=== PATIENT | male | born 1960 | race Asian ===

== ENCOUNTER 2021-04-20 11:26 | Inpatient (IN) | payer OTHER, SELFPAY ==
[~2021-04-20] VITALS: Ht 167.6 cm; Wt 75.8 kg
[2021-04-20] MEDS ORDERED: LORazepam 2 MG/ML VIAL ONE (11:30)
[2021-04-20] MEDS ORDERED: HALOPERIDOL IM 5 MG/ML VIAL ONE (11:30)
[2021-04-20 11:36] VITALS: BP 109/62
[2021-04-20] MEDS ORDERED: PROPOFOL 1000 MG/100 ML PREMIX 100 ML IV ONE (11:55)
[2021-04-20] MEDS ORDERED: ETOMIDATE 20 MG/10 ML VIAL IVP ONE (11:55)
[2021-04-20] MEDS ORDERED: KETAMINE 10 MG/ML UD SYR **ER IVP ONE (11:55)
[2021-04-20] MEDS ORDERED: ROCURONIUM 50 MG/5 ML VIAL IV ONE (11:55)
[2021-04-20] MEDS ORDERED: fentaNYL citrate 0.05 MG/ML VIAL ONE (12:10)
[2021-04-20] MEDS: fentaNYL citrate 1 MG in NACL 0.9% 80 ML IV SCH ×2 (12:13→22:25)
[2021-04-20 12:33] LABS: EOSINOPHILS % (AUTO) 0.1 % (0.0-4.0); HEMATOCRIT 52.2 % (36-52); HEMOGLOBIN 16.4 g/dL (12.0-18.0); LYMPHOCYTES # (AUTO) 0.5 K/uL (2.0-11.5); LYMPHOCYTES % (AUTO) 3.7 % (20.5-51.1); MEAN CORPUSCULAR HEMOGLOBIN 26 pg (27-31); MEAN CORPUSCULAR HGB CONC 31 g/dL (33-37); MEAN CORPUSCULAR VOLUME 81.7 fL (80-94); MONOCYTES # (AUTO) 0.9 K/uL (0.8-1.0); MONOCYTES % (AUTO) 6.2 % (1.7-9.3); NEUTROPHILS # (AUTO) 12.8 K/uL (1.8-7.7); PLATELET COUNT (AUTO) 371 K/uL (140-450); RED BLOOD CELL COUNT(AUTO) 6.38 MIL/uL (4.20-6.10); WHITE BLOOD COUNT (AUTO) 14.2 K/uL (4.8-10.8)
[2021-04-20 12:38] LABS: PROTHROMBIN TIME 11.5 secs (10.8-13.4)
[2021-04-20] MEDS ORDERED: NACL 0.9% 3,000 ML IV ONE (12:45)
[2021-04-20 12:49] LABS: ALBUMIN 4.2 g/dL (3.4-5.0); ANION GAP 28.2 (8-16); CARBON DIOXIDE 19.7 mmol/L (21-32); CHLORIDE 97 mmol/L (98-107); GFR ARICAN-AMERICAN 14 mL/min (>90); GLUCOSE 234 mg/dL (74-106); POTASSIUM 5.9 mmol/L (3.5-5.1); SODIUM SERUM 139 mmol/L (136-145); TOTAL BILIRUBIN 0.5 mg/dL (0.0-1.0)
[2021-04-20 12:52] LABS: APPEARANCE,URINE SL CLOUDY (CLEAR); BILIRUBIN,URINE 1+ (NEGATIVE); BLOOD, URINE 3+ (NEGATIVE); COLOR,URINE YELLOW (YELLOW); LEUKOCYTE ESTERASE ,URINE NEGATIVE (NEGATIVE); NITRITE, URINE NEGATIVE (NEGATIVE); PH,URINE 5.5 (5.0-9.0); UGLUCOSE NEGATIVE (NEGATIVE)
[2021-04-20 13:05] LABS: BARBITURATE, URINE NEGATIVE ng/ml (NEG <=200); BENZODIAZEPINE, URINE NEGATIVE ng/mL (NEG <=200); CANNABINOID, URINE NEGATIVE ng/mL (NEG <=50); COCAINE, URINE POSITIVE ng/mL (NEG <=300); OPIATE, URINE POSITIVE ng/mL (NEG <=2000); PHENCYCLIDINE SCREEN,URINE NEGATIVE ng/mL (NEG <=25)
[2021-04-20 13:14] LABS: RBC,URINE 0-5 /HPF (0-5)
[2021-04-20 13:15] LABS: URINE AMORPHOUS URATE 1+ /HPF (None Seen)
[2021-04-20] MEDS ORDERED: PIPERACILLIN/TAZOBACTAM 3.375 GM in DEXTROSE 5% 50 ML IV ONE (13:15)
[2021-04-20] MEDS ORDERED: NOREPINEPHRINE 4 MG in DEXTROSE 5% 250 ML IV ONE (13:20)
[2021-04-20] MEDS ORDERED: PIPERACILLIN/TAZOBACTAM 3.375 GM VIAL IV ONE (13:30)
[2021-04-20 13:32] LABS: ASPARTATE AMINOTRANSFERASE 2105 U/L (15-37)
[2021-04-20 13:52] LABS: CREATININE 5.4 mg/dL (0.6-1.3); UREA NITROGEN, BLOOD 70 mg/dL (7-18)
[2021-04-20 13:53] LABS: ACETAMINOPHEN < 0.5 ug/ml (10-30); SALICYLATE < 2.8 mg/dL (2.8-20.0)
[2021-04-20 14:13] LABS: CKMB RELATIVE INDEX 1.2 (0.0-2.5); CREATINE KINASE MB 263.8 ng/mL (0-3.6)
[2021-04-20] MEDS ORDERED: CALCIUM CHLORIDE 10% 100 MG/ML SYR IVP ONE (14:25)
[2021-04-20] MEDS ORDERED: fentaNYL citrate 0.05 MG/ML VIAL IVP ONE (14:55)
[2021-04-20] MEDS ORDERED: HALOPERIDOL IM 5 MG/ML VIAL IM ONE (14:55)
[2021-04-20] MEDS ORDERED: LORazepam 2 MG/ML VIAL IVP ONE (14:55)
[2021-04-20] MEDS: SODIUM BICARBONATE 8.4% 50 MEQ in NACL 0.45% 1,000 ML IV SCH (15:41)
[2021-04-20] MEDS ORDERED: ONDANSETRON 4 MG/2 ML VIAL IM/IVP PRN (18:40)
[2021-04-20] MEDS ORDERED: DOCUSATE SODIUM 100 MG GELCAP PO PRN ×2 (18:40→19:00)
[2021-04-20] MEDS ORDERED: ZOLPIDEM 5 MG TAB PO PRN ×2 (18:40→19:00)
[2021-04-20] MEDS ORDERED: HYDROcodone/APAP 5/325 MG 1 TAB TAB PO PRN (18:40)
[2021-04-20] MEDS ORDERED: LORazepam 2 MG/ML VIAL IM/IVP PRN ×2 (18:40→19:00)
[2021-04-20] MEDS ORDERED: POTASSIUM CHLORIDE 10 MEQ TABER PO PRN ×2 (18:40→19:00)
[2021-04-20] MEDS ORDERED: MAG SULF 2000 MG/WATER PREMIX 50 ML IV PRN ×2 (18:40→19:00)
[2021-04-20] MEDS ORDERED: NACL 0.9% 1,000 ML IV SCH ×3 (18:40→19:35)
[2021-04-20] MEDS ORDERED: MORPHINE SULFATE 2 MG/ML SYR IVP PRN (18:40)
[2021-04-20] MEDS ORDERED: ACETAMINOPHEN 325 MG TAB PO PRN ×2 (18:40→19:00)
[2021-04-20 19:05] LABS: PROTHROMBIN TIME 11.2 secs (10.8-13.4)
[2021-04-20 19:14] LABS: CHOL/HDL RATIO 2.5 (1-4.5); MAGNESIUM 3.8 mg/dL (1.8-2.4); THYROID STIMULATING HORMONE 0.59 uIU/mL (0.34-3.74)
[2021-04-20 20:07] VITALS: BP 106/70
[2021-04-20] MEDS ORDERED: NOREPINEPHRINE 16 MG in DEXTROSE 5% 250 ML IV PRN (23:15)
[2021-04-20] MEDS ORDERED: NOREPINEPHRINE 4 MG/4 ML VIAL IV ONE (23:57)
[2021-04-21] VITALS (28 sets, daily range): BP systolic 100–135; BP diastolic 61–81
[2021-04-21] MEDS ORDERED: SODIUM BICARBONATE 8.4% PFS 50 MEQ/50 ML SYR IVP ONE (01:17)
[2021-04-21] MEDS: LACTULOSE 20 GM/30 ML UDC NG SCH ×2 (01:30→11:10)
[2021-04-21] MEDS: SODIUM BICARBONATE 8.4% 50 MEQ in NACL 0.45% 1,000 ML IV SCH (01:52)
[2021-04-21 06:12] LABS: BASOPHILS % (AUTO) 0.1 % (0.0-2.0); EOSINOPHILS % (AUTO) 0.1 % (0.0-4.0); HEMATOCRIT 45.2 % (36-52); HEMOGLOBIN 14.5 g/dL (12.0-18.0); LYMPHOCYTES # (AUTO) 0.8 K/uL (2.0-11.5); MEAN CORPUSCULAR HEMOGLOBIN 26 pg (27-31); MEAN CORPUSCULAR HGB CONC 32 g/dL (33-37); MEAN CORPUSCULAR VOLUME 79.8 fL (80-94); MONOCYTES # (AUTO) 0.7 K/uL (0.8-1.0); MONOCYTES % (AUTO) 5.9 % (1.7-9.3); NEUTROPHILS # (AUTO) 9.6 K/uL (1.8-7.7); PLATELET COUNT (AUTO) 188 K/uL (140-450); RED BLOOD CELL COUNT(AUTO) 5.66 MIL/uL (4.20-6.10); RED CELL DISTRIBUTION WIDTH 15.1 % (11.6-13.7)
[2021-04-21 06:23] LABS: MAGNESIUM 2.5 mg/dL (1.8-2.4); PHOSPHORUS 7.3 mg/dL (2.5-4.9)
[2021-04-21 06:29] LABS: ANION GAP 21.6 (8-16); CARBON DIOXIDE 17.9 mmol/L (21-32); POTASSIUM 5.5 mmol/L (3.5-5.1)
[2021-04-21 06:46] LABS: CREATININE 5.6 mg/dL (0.6-1.3)
[2021-04-21 07:11] LABS: LYMPHOCYTES % (AUTO) 6.8 % (20.5-51.1); NEUTROPHILS % (AUTO) 87.1 % (42.2-75.2)
[2021-04-21 10:00] LABS: CREATINE KINASE MB 372.5 ng/mL (0-3.6)
[2021-04-21] MEDS: NACL 0.9% 1,000 ML IV SCH ×2 (11:02→17:35)
[2021-04-21] MEDS: CALCIUM ACETATE 667 MG TAB NG SCH ×2 (11:07→17:37)
[2021-04-21] MEDS ORDERED: SODIUM ZIRCONIUM CYCLOSILICATE 10 GM POWD.PACK PO SCH (11:08)
[2021-04-22] VITALS (30 sets, daily range): BP systolic 118–171; BP diastolic 60–118
[2021-04-22] MEDS: NACL 0.9% 1,000 ML IV SCH ×3 (01:35→22:57)
[2021-04-22 06:18] LABS: BASOPHILS % (AUTO) 0.1 % (0.0-2.0); EOSINOPHILS % (AUTO) 0.2 % (0.0-4.0); HEMATOCRIT 40.3 % (36-52); LYMPHOCYTES # (AUTO) 0.4 K/uL (2.0-11.5); LYMPHOCYTES % (AUTO) 3.8 % (20.5-51.1); MEAN CORPUSCULAR HEMOGLOBIN 26 pg (27-31); MEAN CORPUSCULAR HGB CONC 32 g/dL (33-37); MEAN CORPUSCULAR VOLUME 79.1 fL (80-94); MONOCYTES # (AUTO) 0.6 K/uL (0.8-1.0); MONOCYTES % (AUTO) 6.2 % (1.7-9.3); NEUTROPHILS # (AUTO) 9.2 K/uL (1.8-7.7); NEUTROPHILS % (AUTO) 89.7 % (42.2-75.2); PLATELET COUNT (AUTO) 180 K/uL (140-450); RED CELL DISTRIBUTION WIDTH 15.3 % (11.6-13.7); WHITE BLOOD COUNT (AUTO) 10.2 K/uL (4.8-10.8)
[2021-04-22 06:33] LABS: ANION GAP 20.8 (8-16); CARBON DIOXIDE 16.9 mmol/L (21-32); POTASSIUM 4.7 mmol/L (3.5-5.1)
[2021-04-22 06:39] LABS: CREATININE 7.9 mg/dL (0.6-1.3)
[2021-04-22 06:44] LABS: MAGNESIUM 2.7 mg/dL (1.8-2.4); PHOSPHORUS 8.4 mg/dL (2.5-4.9)
[2021-04-22 09:06] LABS: T4 (THYROXINE) 7.6 ug/dL (4.5-12.0)
[2021-04-22] MEDS ORDERED: DEXTROSE 50% 50 ML SYR IVP PRN (09:20)
[2021-04-22] MEDS: CALCIUM ACETATE 667 MG TAB NG SCH ×2 (09:46→17:16)
[2021-04-22] MEDS ORDERED: LEVOFLOXACIN 750 MG/D5W PREMIX 150 ML IV SCH (10:00)
[2021-04-22] MEDS: BLOOD GLUCOSE MONITORING 1 DEV DEV FS SCH ×3 (11:30→21:30)
[2021-04-22] MEDS: PANTOPRAZOLE 40 MG INJ VIAL IVP SCH (13:00)
[2021-04-22] MEDS: LOSARTAN 50 MG TAB PO SCH (13:01)
[2021-04-22] MEDS: INSULIN LISPRO SLIDING SCALE 100 UNITS/ML VIAL SUBQ PRN ×2 (13:09→17:14)
[2021-04-22] MEDS: GAUZE TP SCH (13:10)
[2021-04-22] MEDS: MORPHINE SULFATE 2 MG/ML SYR IVP PRN (13:32)
[2021-04-22] MEDS: CLONIDINE HYDROCHLORIDE 0.1 MG TAB PO PRN (22:57)
[2021-04-23] VITALS (28 sets, daily range): BP systolic 140–181; BP diastolic 78–126
[2021-04-23] MEDS: GAUZE TP SCH ×2 (00:39→12:54)
[2021-04-23 06:14] LABS: BASOPHILS % (AUTO) 0.1 % (0.0-2.0); EOSINOPHILS # (AUTO) 0.1 K/uL (0-0.4); EOSINOPHILS % (AUTO) 1.5 % (0.0-4.0); HEMATOCRIT 35.9 % (36-52); HEMOGLOBIN 11.9 g/dL (12.0-18.0); LYMPHOCYTES # (AUTO) 0.4 K/uL (2.0-11.5); LYMPHOCYTES % (AUTO) 3.9 % (20.5-51.1); MEAN CORPUSCULAR HEMOGLOBIN 26 pg (27-31); MEAN CORPUSCULAR HGB CONC 33 g/dL (33-37); MEAN CORPUSCULAR VOLUME 77.1 fL (80-94); MONOCYTES # (AUTO) 0.6 K/uL (0.8-1.0); MONOCYTES % (AUTO) 6.1 % (1.7-9.3); NEUTROPHILS # (AUTO) 8.4 K/uL (1.8-7.7); NEUTROPHILS % (AUTO) 88.4 % (42.2-75.2); PLATELET COUNT (AUTO) 159 K/uL (140-450); RED BLOOD CELL COUNT(AUTO) 4.66 MIL/uL (4.20-6.10); RED CELL DISTRIBUTION WIDTH 15.4 % (11.6-13.7); WHITE BLOOD COUNT (AUTO) 9.4 K/uL (4.8-10.8)
[2021-04-23 06:29] LABS: MAGNESIUM 2.3 mg/dL (1.8-2.4)
[2021-04-23 06:44] LABS: ANION GAP 15.9 (8-16); CARBON DIOXIDE 23.7 mmol/L (21-32); POTASSIUM 3.6 mmol/L (3.5-5.1)
[2021-04-23] MEDS: BLOOD GLUCOSE MONITORING 1 DEV DEV FS SCH ×4 (07:30→20:32)
[2021-04-23] MEDS: CALCIUM ACETATE 667 MG TAB NG SCH ×2 (08:43→17:44)
[2021-04-23] MEDS: PANTOPRAZOLE 40 MG INJ VIAL IVP SCH (08:43)
[2021-04-23] MEDS: LOSARTAN 50 MG TAB PO SCH (08:43)
[2021-04-23] MEDS: LACTULOSE 20 GM/30 ML UDC NG SCH (08:45)
[2021-04-23] MEDS: FLUoxetine 20 MG CAP PO SCH (08:45)
[2021-04-23] MEDS: NACL 0.9% 1,000 ML IV SCH ×2 (08:46→22:51)
[2021-04-23] MEDS: INSULIN LISPRO SLIDING SCALE 100 UNITS/ML VIAL SUBQ PRN ×4 (08:59→20:33)
[2021-04-23] MEDS: hydrALAZINE 20 MG/ML VIAL IVP PRN ×2 (10:39→17:44)
[2021-04-23] MEDS: MORPHINE SULFATE 2 MG/ML SYR IVP PRN ×2 (10:40→12:57)
[2021-04-23] MEDS: CLONIDINE HYDROCHLORIDE 0.1 MG TAB PO PRN (12:57)
[2021-04-23] MEDS: HYDROcodone/APAP 5/325 MG 1 TAB TAB PO PRN (17:43)
[2021-04-24] VITALS (26 sets, daily range): BP systolic 141–172; BP diastolic 55–107
[2021-04-24] MEDS: GAUZE TP SCH ×2 (00:18→12:21)
[2021-04-24] MEDS: CLONIDINE HYDROCHLORIDE 0.1 MG TAB PO PRN (01:21)
[2021-04-24 04:49] LABS: MAGNESIUM 2.6 mg/dL (1.8-2.4); PHOSPHORUS 5.2 mg/dL (2.5-4.9)
[2021-04-24 05:21] LABS: BASOPHILS % (AUTO) 0.1 % (0.0-2.0); EOSINOPHILS # (AUTO) 0.1 K/uL (0-0.4); EOSINOPHILS % (AUTO) 0.9 % (0.0-4.0); HEMATOCRIT 38.1 % (36-52); HEMOGLOBIN 12.5 g/dL (12.0-18.0); LYMPHOCYTES # (AUTO) 0.4 K/uL (2.0-11.5); LYMPHOCYTES % (AUTO) 4.2 % (20.5-51.1); MEAN CORPUSCULAR HEMOGLOBIN 25 pg (27-31); MEAN CORPUSCULAR HGB CONC 33 g/dL (33-37); MEAN CORPUSCULAR VOLUME 77.5 fL (80-94); MONOCYTES # (AUTO) 0.7 K/uL (0.8-1.0); MONOCYTES % (AUTO) 7.7 % (1.7-9.3); NEUTROPHILS # (AUTO) 7.6 K/uL (1.8-7.7); NEUTROPHILS % (AUTO) 87.1 % (42.2-75.2); PLATELET COUNT (AUTO) 166 K/uL (140-450); RED BLOOD CELL COUNT(AUTO) 4.92 MIL/uL (4.20-6.10); RED CELL DISTRIBUTION WIDTH 15.3 % (11.6-13.7); WHITE BLOOD COUNT (AUTO) 8.8 K/uL (4.8-10.8)
[2021-04-24] MEDS: INSULIN LISPRO SLIDING SCALE 100 UNITS/ML VIAL SUBQ PRN ×2 (06:20→12:19)
[2021-04-24] MEDS: BLOOD GLUCOSE MONITORING 1 DEV DEV FS SCH ×4 (06:20→21:00)
[2021-04-24 07:08] LABS: HEPATITIS A ANTIBODY IGM Negative (Negative); HEPATITIS B CORE AB TOTAL Negative (Negative); HEPATITIS B SURFACE ANTIBODY Non Reactive (.); HEPATITIS B SURFACE ANTIGEN Negative (Negative)
[2021-04-24 08:20] LABS: ANION GAP 20.6 (8-16); CARBON DIOXIDE 18.3 mmol/L (21-32); POTASSIUM 3.9 mmol/L (3.5-5.1)
[2021-04-24] MEDS: PANTOPRAZOLE 40 MG INJ VIAL IVP SCH (08:31)
[2021-04-24] MEDS: LACTULOSE 20 GM/30 ML UDC NG SCH (08:33)
[2021-04-24] MEDS: CALCIUM ACETATE 667 MG TAB NG SCH ×2 (08:33→17:00)
[2021-04-24] MEDS: FLUoxetine 20 MG CAP PO SCH (08:34)
[2021-04-24] MEDS: LOSARTAN 50 MG TAB PO SCH (08:34)
[2021-04-24] MEDS: NACL 0.9% 1,000 ML IV SCH ×2 (09:00→16:55)
[2021-04-24] MEDS: LEVOFLOXACIN 500 MG/D5W PREMIX 100 ML IV SCH (11:01)
[2021-04-24] MEDS ORDERED: ALTEPLASE 2 MG VIAL MC SCH (12:00)
[2021-04-24] MEDS: ONDANSETRON 4 MG/2 ML VIAL IM/IVP PRN (22:31)
[2021-04-25] VITALS (13 sets, daily range): BP systolic 124–168; BP diastolic 73–99
[2021-04-25] MEDS: GAUZE TP SCH ×2 (01:00→13:00)
[2021-04-25] MEDS: hydrALAZINE 20 MG/ML VIAL IVP PRN ×2 (01:45→19:17)
[2021-04-25] MEDS: ONDANSETRON 4 MG/2 ML VIAL IM/IVP PRN ×4 (04:30→21:29)
[2021-04-25 05:31] LABS: BASOPHILS % (AUTO) 0.3 % (0.0-2.0); EOSINOPHILS # (AUTO) 0.2 K/uL (0-0.4); EOSINOPHILS % (AUTO) 2.4 % (0.0-4.0); HEMATOCRIT 37.9 % (36-52); HEMOGLOBIN 12.5 g/dL (12.0-18.0); LYMPHOCYTES # (AUTO) 0.5 K/uL (2.0-11.5); LYMPHOCYTES % (AUTO) 5.3 % (20.5-51.1); MEAN CORPUSCULAR HEMOGLOBIN 26 pg (27-31); MEAN CORPUSCULAR HGB CONC 33 g/dL (33-37); MEAN CORPUSCULAR VOLUME 77.5 fL (80-94); MONOCYTES # (AUTO) 0.7 K/uL (0.8-1.0); MONOCYTES % (AUTO) 8.6 % (1.7-9.3); NEUTROPHILS # (AUTO) 7.2 K/uL (1.8-7.7); NEUTROPHILS % (AUTO) 83.4 % (42.2-75.2); PLATELET COUNT (AUTO) 138 K/uL (140-450); RED BLOOD CELL COUNT(AUTO) 4.89 MIL/uL (4.20-6.10); RED CELL DISTRIBUTION WIDTH 14.9 % (11.6-13.7); WHITE BLOOD COUNT (AUTO) 8.6 K/uL (4.8-10.8)
[2021-04-25] MEDS: NACL 0.9% 1,000 ML IV SCH ×3 (05:33→22:55)
[2021-04-25 06:14] LABS: ANION GAP 17.9 (8-16); CARBON DIOXIDE 18.2 mmol/L (21-32); MAGNESIUM 2.4 mg/dL (1.8-2.4); PHOSPHORUS 4.1 mg/dL (2.5-4.9); POTASSIUM 4.1 mmol/L (3.5-5.1)
[2021-04-25 06:16] LABS: CREATININE 7.5 mg/dL (0.6-1.3)
[2021-04-25] MEDS: BLOOD GLUCOSE MONITORING 1 DEV DEV FS SCH ×4 (08:11→21:19)
[2021-04-25] MEDS: CALCIUM ACETATE 667 MG TAB NG SCH ×2 (08:11→16:58)
[2021-04-25] MEDS: LACTULOSE 20 GM/30 ML UDC NG SCH (08:11)
[2021-04-25] MEDS: PANTOPRAZOLE 40 MG INJ VIAL IVP SCH (08:11)
[2021-04-25] MEDS: LOSARTAN 50 MG TAB PO SCH (08:12)
[2021-04-25] MEDS: FLUoxetine 20 MG CAP PO SCH (08:12)
[2021-04-25] MEDS: INSULIN LISPRO SLIDING SCALE 100 UNITS/ML VIAL SUBQ PRN ×3 (11:38→21:21)
[2021-04-26] MEDS: GAUZE TP SCH ×2 (01:19→13:15)
[2021-04-26] MEDS: ONDANSETRON 4 MG/2 ML VIAL IM/IVP PRN ×5 (01:35→16:55)
[2021-04-26] MEDS: MORPHINE SULFATE 2 MG/ML SYR IVP PRN (01:57)
[2021-04-26] MEDS: NACL 0.9% 1,000 ML IV SCH ×2 (05:00→19:46)
[2021-04-26 05:39] VITALS: BP 157/76
[2021-04-26] MEDS: BLOOD GLUCOSE MONITORING 1 DEV DEV FS SCH ×4 (07:45→20:32)
[2021-04-26] MEDS: INSULIN LISPRO SLIDING SCALE 100 UNITS/ML VIAL SUBQ PRN ×2 (07:47→20:34)
[2021-04-26 08:00] VITALS: BP 164/96
[2021-04-26] MEDS: CALCIUM ACETATE 667 MG TAB NG SCH ×2 (08:00→17:29)
[2021-04-26] MEDS: LACTULOSE 20 GM/30 ML UDC NG SCH (08:41)
[2021-04-26] MEDS: LOSARTAN 50 MG TAB PO SCH (08:41)
[2021-04-26] MEDS: FLUoxetine 20 MG CAP PO SCH (08:43)
[2021-04-26] MEDS: PANTOPRAZOLE 40 MG INJ VIAL IVP SCH (08:44)
[2021-04-26] MEDS ORDERED: fentaNYL citrate 0.05 MG/ML VIAL ONE (09:01)
[2021-04-26] MEDS ORDERED: MIDAZOLAM 2 MG/2 ML VIAL ONE (09:01)
[2021-04-26] MEDS ORDERED: LIDOCAINE 1% 500 MG/50 ML VIAL ONE (09:02)
[2021-04-26] MEDS ORDERED: BUPIVACAINE-MPF/EPI 0.5% 30 ML VIAL INJ ONE ×2 (09:02)
[2021-04-26] MEDS ORDERED: PROPOFOL 200 MG/20 ML VIAL IV ONE (09:31)
[2021-04-26] MEDS ORDERED: LABETALOL 100 MG/20 ML VIAL ONE (09:32)
[2021-04-26] MEDS ORDERED: hydrALAZINE 20 MG/ML VIAL ONE (09:38)
[2021-04-26] MEDS ORDERED: diphenhydrAMINE 50 MG/ML VIAL IVP PRN (09:50)
[2021-04-26] MEDS: LACTATED RINGERS 1,000 ML IV SCH ×2 (09:50→18:10)
[2021-04-26] MEDS ORDERED: ONDANSETRON 4 MG/2 ML VIAL IVP PRN (09:50)
[2021-04-26] MEDS: LEVOFLOXACIN 500 MG/D5W PREMIX 100 ML IV SCH (10:00)
[2021-04-26 13:18] LABS: ANION GAP 14.4 (8-16); CARBON DIOXIDE 19.8 mmol/L (21-32); POTASSIUM 4.2 mmol/L (3.5-5.1)
[2021-04-26 13:26] LABS: CREATININE 7.9 mg/dL (0.6-1.3)
[2021-04-26 16:00] VITALS: BP 145/87
[2021-04-26] MEDS: ALBUTEROL SULFATE/IPRATROPIU 3 ML SOL IH PRN (17:08)
[2021-04-26] MEDS ORDERED: HEPARIN PER PHARMACY MC PRN (18:00)
[2021-04-26] MEDS ORDERED: VANCOMYCIN PER PHARMACY MC PRN (18:00)
[2021-04-26] MEDS ORDERED: hePARIN / DEXT 5% PREMIX 250 ML IV SCH (18:35)
[2021-04-26] MEDS ORDERED: VANCOMYCIN HCL 1.25 GM in DEXTROSE 5% 250 ML IV SCH (19:00)
[2021-04-26 20:00] VITALS: BP 115/70
[2021-04-26] MEDS: HYDROcodone/APAP 5/325 MG 1 TAB TAB PO PRN (20:40)
[2021-04-27] VITALS: BP 137/74
[2021-04-27] MEDS: GAUZE TP SCH ×2 (01:00→13:33)
[2021-04-27] MEDS: LACTATED RINGERS 1,000 ML IV SCH (02:30)
[2021-04-27] MEDS: ONDANSETRON 4 MG/2 ML VIAL IM/IVP PRN ×3 (02:33→19:01)
[2021-04-27] MEDS: HYDROcodone/APAP 5/325 MG 1 TAB TAB PO PRN (05:00)
[2021-04-27] MEDS: NACL 0.9% 1,000 ML IV SCH ×3 (05:00→20:00)
[2021-04-27] MEDS: INSULIN LISPRO SLIDING SCALE 100 UNITS/ML VIAL SUBQ PRN ×4 (06:44→21:38)
[2021-04-27] MEDS: BLOOD GLUCOSE MONITORING 1 DEV DEV FS SCH ×4 (06:44→21:33)
[2021-04-27 08:00] VITALS: BP 154/89
[2021-04-27] MEDS: LOSARTAN 50 MG TAB PO SCH (08:59)
[2021-04-27] MEDS: CALCIUM ACETATE 667 MG TAB NG SCH ×2 (08:59→16:26)
[2021-04-27] MEDS: FLUoxetine 20 MG CAP PO SCH (08:59)
[2021-04-27] MEDS: PANTOPRAZOLE 40 MG INJ VIAL IVP SCH (08:59)
[2021-04-27] MEDS: LACTULOSE 20 GM/30 ML UDC NG SCH (09:00)
[2021-04-27 11:33] LABS: PROTHROMBIN TIME 9.9 secs (10.8-13.4)
[2021-04-27] MEDS: ALBUTEROL SULFATE/IPRATROPIU 3 ML SOL IH PRN (11:34)
[2021-04-27 12:00] VITALS: BP 153/88
[2021-04-27 16:00] VITALS: BP 146/79
[2021-04-27 21:40] LABS: PROTHROMBIN TIME 9.6 secs (10.8-13.4)
[2021-04-27 22:05] VITALS: BP 160/89
[2021-04-28] VITALS: BP 144/85
[2021-04-28] MEDS: ONDANSETRON 4 MG/2 ML VIAL IM/IVP PRN (00:42)
== END 2021-04-28 01:00 | disposition short-term general hospital (02) | DRG 917 ==
LOC: EDBD 11:26 → MED 11:26 → MMU 18:46 → MED 18:46 → MIC 19:41 → MTU 04-25 09:27
PROC: 02HV33Z Insertion of Infusion Device into Superior Vena Cava, Percutaneous Approach (ICD-10-PCS; principal; 2021-04-20)
PROC: B548ZZA Ultrasonography of Superior Vena Cava, Guidance (ICD-10-PCS; 2021-04-20)
PROC: 0BH17EZ Insertion of Endotracheal Airway into Trachea, Via Natural or Artificial Opening (ICD-10-PCS; 2021-04-20)
PROC: 5A1955Z Respiratory Ventilation, Greater than 96 Consecutive Hours (ICD-10-PCS; 2021-04-20)
PROC: 02HV33Z Insertion of Infusion Device into Superior Vena Cava, Percutaneous Approach (ICD-10-PCS; 2021-04-21)
PROC: B548ZZA Ultrasonography of Superior Vena Cava, Guidance (ICD-10-PCS; 2021-04-21)
PROC: 5A1D70Z Performance of Urinary Filtration, Intermittent, Less than 6 Hours Per Day (ICD-10-PCS; 2021-04-22)
PROC: 02PYX3Z Removal of Infusion Device from Great Vessel, External Approach (ICD-10-PCS; 2021-04-22)
PROC: 02HV33Z Insertion of Infusion Device into Superior Vena Cava, Percutaneous Approach (ICD-10-PCS; 2021-04-22)
PROC: 5A1D70Z Performance of Urinary Filtration, Intermittent, Less than 6 Hours Per Day (ICD-10-PCS; 2021-04-24)
PROC: 3E03317 Introduction of Other Thrombolytic into Peripheral Vein, Percutaneous Approach (ICD-10-PCS; 2021-04-25)
PROC: 5A1D70Z Performance of Urinary Filtration, Intermittent, Less than 6 Hours Per Day (ICD-10-PCS; 2021-04-26)
PROC: 02PYX3Z Removal of Infusion Device from Great Vessel, External Approach (ICD-10-PCS; 2021-04-26)
PROC: 0JH63XZ Insertion of Tunneled Vascular Access Device into Chest Subcutaneous Tissue and Fascia, Percutaneous Approach (ICD-10-PCS; 2021-04-26)
PROC: 02HV33Z Insertion of Infusion Device into Superior Vena Cava, Percutaneous Approach (ICD-10-PCS; 2021-04-26)
PROC: B518ZZA Fluoroscopy of Superior Vena Cava, Guidance (ICD-10-PCS; 2021-04-26)
DX: T40.5X1A Poisoning by cocaine, accidental (unintentional), initial encounter (principal); I46.9 Cardiac arrest, cause unspecified; J69.0 Pneumonitis due to inhalation of food and vomit; I21.4 Non-ST elevation (NSTEMI) myocardial infarction; J96.01 Acute respiratory failure with hypoxia; K72.00 Acute and subacute hepatic failure without coma; N17.0 Acute kidney failure with tubular necrosis; G92.8 Other toxic encephalopathy; N18.6 End stage renal disease; M62.82 Rhabdomyolysis; E87.2 Acidosis; G93.1 Anoxic brain damage, not elsewhere classified; I82.612 Acute embolism and thrombosis of superficial veins of left upper extremity; T79.A0XA Compartment syndrome, unspecified, initial encounter; T82.41XA Breakdown (mechanical) of vascular dialysis catheter, initial encounter; K76.0 Fatty (change of) liver, not elsewhere classified; E83.39 Other disorders of phosphorus metabolism; E83.41 Hypermagnesemia; J32.8 Other chronic sinusitis; F14.10 Cocaine abuse, uncomplicated; F11.10 Opioid abuse, uncomplicated; T40.601A Poisoning by unspecified narcotics, accidental (unintentional), initial encounter; I95.9 Hypotension, unspecified; Z20.822 Contact with and (suspected) exposure to COVID-19; E86.0 Dehydration; E87.5 Hyperkalemia; R13.11 Dysphagia, oral phase; X58.XXXA Exposure to other specified factors, initial encounter; Y83.8 Other surgical procedures as the cause of abnormal reaction of the patient, or of later complication, without mention of misadventure at the time of the procedure; Y92.238 Other place in hospital as the place of occurrence of the external cause; Y93.89 Activity, other specified; Y99.8 Other external cause status; Z99.2 Dependence on renal dialysis
CPT/HCPCS: 31500; 36415; 36600; 70450; 71045; 71250; 73200; 76770; 80048; 80053; 80305; 81001; 82140; 82150; 82272; 82550; 82553; 82803; 83036; 83690; 83735; 83880; 84100; 84134; 84436; 84443; 84484; 85025; 85610; 85730; 86704; 86706; 86708; 86709; 86803; 87040; 87081; 87086; 87340; 90935; 92610; 93005; 93970; 93971; 94002; 94003; 94640; 96361; 96365; 96375; 99291; C1894; C9113; G0480; G0482; J0360; J1630; J1644; J1956; J2001; J2060; J2250; J2270; J2405; J2543; J2704; J2997; J3010; J3370; J3490; J7060; J7120; Q0092